=== PATIENT | male | born 1965 | race African-American/Black ===

== ENCOUNTER → 2019-07-29 | Outpatient (CLI) | payer OTHER ==
--- NOTE | 2019-07-29 10:42 | REP ---
LEFT SHOULDER, THREE VIEWS: Three views of the left shoulder are performed. There is no acute fracture or dislocation. There is mild to moderate narrowing and subchondral sclerosis of the acromioclavicular joint with mild hypertrophic changes. IMPRESSION: Mild to moderate degenerative changes acromioclavicular joint. Electronically Signed by Rodney Sheikh MD 07/29/2019 03:33 P
== END ==
LOC: M RAD 09:02
PROVIDERS: ATTEND Surgery
DX: M19.012 Primary osteoarthritis, left shoulder (principal)

== ENCOUNTER → 2020-01-29 | Outpatient (REF) | payer OTHER ==
[2020-01-29 10:24] LABS: INR 3.74; PROTHROMBIN TIME 37.1 SECONDS (11.8-14.0)
== END ==
LOC: M LAB REF 09:51
PROVIDERS: ATTEND Surgery
DX: I48.91 Unspecified atrial fibrillation (principal)

== ENCOUNTER → 2020-02-01 | Outpatient (REF) | payer OTHER ==
[2020-02-01 12:20] LABS: INR 3.48
== END ==
LOC: M LAB REF 11:58
PROVIDERS: ATTEND Surgery
DX: I48.91 Unspecified atrial fibrillation (principal)